=== PATIENT | female | born 1990 | race African-American/Black ===

== ENCOUNTER 2020-05-28 15:48 | Emergency (ER) | payer MEDICAID ==
[~2020-05-28] VITALS: Ht 172.7 cm; Wt 98.0 kg
[2020-05-28 16:10] VITALS: BP 115/70
== END 2020-05-28 17:00 | disposition left against medical advice (07) ==
LOC: ER 15:48
DX: R10.9 Unspecified abdominal pain (principal); Z53.21 Procedure and treatment not carried out due to patient leaving prior to being seen by health care provider
CPT/HCPCS: 93005

== ENCOUNTER 2023-06-07 15:40 | Emergency (ER) | payer MEDICAID, OTHER ==
[~2023-06-07] VITALS: Ht 167.6 cm; Wt 79.0 kg
[2023-06-07 15:48] VITALS: BP 135/52; PULSE 88; RESP 20; TEMP 98; O2SAT 100
== END 2023-06-07 17:42 | disposition left against medical advice (07) ==
LOC: ER 15:40
DX: R10.9 Unspecified abdominal pain (principal); Z53.21 Procedure and treatment not carried out due to patient leaving prior to being seen by health care provider
CPT/HCPCS: 99281

== ENCOUNTER 2023-06-17 17:18 | Emergency (ER) | payer OTHER ==
[~2023-06-17] VITALS: Ht 162.6 cm; Wt 69.0 kg
[2023-06-17 17:28] VITALS: O2SAT 100
[2023-06-17 20:13] LABS: HEMATOCRIT. 26.9 % (36.0-48.0); HEMOGLOBIN. 8.9 g/dL (12.0-16.0); MEAN CORPUSCULAR HEMOGLOBIN 29.2 pg (28.0-32.0); MEAN CORPUSCULAR HGB CONC 33.2 g/dL (31.0-37.0); MEAN PLATELET VOLUME 9.8 fl (7.4-10.4); PLATELET 178 x1000/uL (130-400); RED BLOOD CELL COUNT 3.06 mill/uL (4.2-5.4); RED CELL DISTRIBUTION WIDTH 15.1 % (11.6-14.6); WHITE BLOOD COUNT 9.8 x1000/uL (4.5-11.0)
[2023-06-17 20:22] LABS: DIFFERENTIAL COMMENT 1
[2023-06-17 20:30] LABS: ALANINE AMINOTRANSFERASE 12 IU/L (10-49); ALBUMIN 2.9 g/dL (3.2-4.8); ASPARTATE AMINOTRANSFERASE 12 IU/L (<34); BILIRUBIN TOTAL 0.5 mg/dL (0.1-1.0); CALCIUM 7.5 mg/dL (8.7-10.4); CARBON DIOXIDE 22 mEq/L (21-32); CHLORIDE 110 mEq/L (98-107); CREATININE 0.6 mg/dL (0.6-1.0); GLUCOSE 110 mg/dL (70-105); PROTEIN TOTAL 6.7 g/dL (6.0-8.3); SODIUM 137 mEq/L (136-145); UREA NITROGEN BLOOD 11 mg/dL (9-23)
[2023-06-17 20:31] LABS: ETHANOL BLOOD < 10 mg/dL (<10)
[2023-06-17 20:32] LABS: HCG SCREEN NEGATIVE
[2023-06-17 20:37] LABS: PLATELET ESTIMATE NORMAL
[2023-06-17] MEDS: DIPHENHYDRAMINE 50MG/ML VIAL IM NR (23:09)
[2023-06-17] MEDS: LOPERAMIDE HCL 2MG CAPSULE PO ONE (23:09)
[2023-06-17] MEDS: ONDANSETRON 4MG ODT PO NR (23:10)
[2023-06-17] MEDS: POTASSIUM CHLORIDE 20MEQ/PACKET PO NR (23:10)
[2023-06-17 23:28] LABS: CLARITY URINE TURBID (CLEAR); COLOR URINE DARK YELLOW (YELLOW); GLUCOSE URINE NEGATIVE (NEGATIVE); KETONES URINE NEGATIVE (NEGATIVE); LEUKOCYTE ESTERASE URINE 3+ (NEGATIVE); NITRITE URINE POSITIVE (NEGATIVE); OCCULT BLOOD URINE 1+ (NEGATIVE); PROTEIN URINE 1+ (NEGATIVE); SPECIFIC GRAVITY URINE 1.014 (1.005-1.030); UROBILINOGEN URINE >8.0 E.U./dL (0.2-1.0)
[2023-06-17 23:37] LABS: *AMPHETAMINES SCREEN URINE NEGATIVE (NEGATIVE); *BARBITURATES SCREEN URINE NEGATIVE (NEGATIVE); *BENZODIAZEPINES SCREEN URINE NEGATIVE (NEGATIVE); *COCAINE SCREEN URINE NEGATIVE (NEGATIVE); CANNABINOID URINE SCREEN NEGATIVE (NEGATIVE); ECSTASY MDMA SCREEN URINE NEGATIVE (NEGATIVE); METHADONE URINE SCREEN Neg (NEGATIVE); OPIATES URINE SCREEN NEGATIVE (NEGATIVE); PHENCYCLIDINE URINE SCREEN NEGATIVE (NEGATIVE)
[2023-06-17] MEDS: ONDANSETRON 4MG ODT PO ONE (23:45)
[2023-06-17 23:58] LABS: SQUAMOUS EPITHELIAL CELL URINE FEW /lpf (RARE/1+); WBC URINE TNTC /hpf (0-2)
[2023-06-17 23:59] LABS: BACTERIA URINE 4+; RBC URINE 0-2 /hpf (0-2)
[2023-06-18] MEDS: CEPHALEXIN 250MG CAPSULE PO NR (06:30)
[2023-06-18] MEDS: CEPHALEXIN 250MG CAPSULE PO SCH (10:14)
[2023-06-18] MEDS ORDERED: NITR100C PO (11:53)
[2023-06-18 12:11] VITALS: BP 104/64; PULSE 84; RESP 18; TEMP 98.9
== END 2023-06-18 12:22 | disposition home or self-care (01) ==
LOC: ER 17:18
DX: N39.0 Urinary tract infection, site not specified (principal); Z88.5 Allergy status to narcotic agent; Z59.00 Homelessness unspecified; Z20.822 Contact with and (suspected) exposure to COVID-19
CPT/HCPCS: 80053; 80305; 81003; 80307; 80329; 80320; 84703; 85025; 87086; 87186; 87077; 36415; 71045; 96372; 99285; 87426; Q0162; J1200; G0480

== ENCOUNTER 2023-06-24 20:12 | Emergency (ER) | payer OTHER ==
[~2023-06-24] VITALS: Ht 167.6 cm; Wt 93.0 kg
[~2023-06-24 20:12] MED LIST: NITR100C PO
[2023-06-24 20:18] VITALS: BP 98/66; PULSE 116; RESP 18; TEMP 97.7; O2SAT 99
[2023-06-24] MEDS ORDERED: ALBUTEROL (0.5%) 2.5MG/0.5ML NEB HHN ONE (23:30)
== END 2023-06-25 02:25 | disposition home or self-care (01) ==
LOC: ER 20:12
DX: J45.909 Unspecified asthma, uncomplicated (principal); R06.00 Dyspnea, unspecified
CPT/HCPCS: 99281

== ENCOUNTER 2023-06-25 02:38 | Emergency (ER) | payer MEDICAID, OTHER ==
[~2023-06-25] VITALS: Ht 167.6 cm; Wt 93.0 kg
[2023-06-25 02:55] VITALS: BP 114/87; PULSE 123; RESP 18; TEMP 98.6; O2SAT 99
[2023-06-25 08:39] LABS: BASOPHILS % 0.3 % (0.0-2.0); EOSINOPHILS % 0.6 % (0.0-5.0); HEMATOCRIT. 33.2 % (36.0-48.0); HEMOGLOBIN. 10.7 g/dL (12.0-16.0); LYMPHOCYTES % 29.3 % (20.0-50.0); MEAN CORPUSCULAR HEMOGLOBIN 28.6 pg (28.0-32.0); MEAN CORPUSCULAR HGB CONC 32.2 g/dL (31.0-37.0); MEAN CORPUSCULAR VOLUME 88.8 fL (81.0-99.0); MONOCYTES % 10.2 % (2.0-8.0); NEUTROPHILS % 59.6 % (40.0-76.0); PLATELET 441 x1000/uL (130-400); RED BLOOD CELL COUNT 3.74 mill/uL (4.2-5.4); RED CELL DISTRIBUTION WIDTH 16.2 % (11.6-14.6); WHITE BLOOD COUNT 6.5 x1000/uL (4.5-11.0)
[2023-06-25 08:52] LABS: HCG SCREEN NEGATIVE
[2023-06-25 08:55] LABS: ALANINE AMINOTRANSFERASE 11 IU/L (10-49); ALBUMIN 3.4 g/dL (3.2-4.8); ASPARTATE AMINOTRANSFERASE 17 IU/L (<34); BILIRUBIN TOTAL 0.4 mg/dL (0.1-1.0); CALCIUM 8.5 mg/dL (8.7-10.4); CARBON DIOXIDE 28 mEq/L (21-32); CHLORIDE 105 mEq/L (98-107); CREATININE 0.6 mg/dL (0.6-1.0); GLUCOSE 69 mg/dL (70-105); POTASSIUM 3.9 mEq/L (3.5-5.1); PROTEIN TOTAL 7.4 g/dL (6.0-8.3); SODIUM 138 mEq/L (136-145); UREA NITROGEN BLOOD 6 mg/dL (9-23)
[2023-06-25 09:05] LABS: TROPONIN I HIGH SENSITIVITY < 4 ng/L (3.0-34)
== END 2023-06-25 09:37 | disposition home or self-care (01) ==
LOC: ER 02:38
DX: R07.89 Other chest pain (principal); Z88.5 Allergy status to narcotic agent
CPT/HCPCS: 36415; 71045; 80053; 84484; 84703; 85025; 93005; 99285

== ENCOUNTER 2023-06-27 17:41 | Emergency (ER) | payer OTHER ==
[~2023-06-27] VITALS: Ht 162.6 cm; Wt 69.0 kg
[2023-06-27 17:49] VITALS: BP 126/89; RESP 20; TEMP 98.6; O2SAT 100
[2023-06-27 17:50] VITALS: PULSE 140
== END 2023-06-27 18:00 | disposition left against medical advice (07) ==
LOC: ER 17:52
DX: R68.89 Other general symptoms and signs (principal); Z53.21 Procedure and treatment not carried out due to patient leaving prior to being seen by health care provider
CPT/HCPCS: 99281